=== PATIENT | male | born 1970 | race Caucasian/White ===

== ENCOUNTER 2020-12-26 15:48 | Emergency (ER) | payer OTHER ==
[2020-12-26 15:54] VITALS: BP 151/93; PULSE 67; RESP 18; TEMP 97.9
[2020-12-26] MEDS ORDERED: KETOROLAC 15 MG/ML 1 ML VIAL IVP STA (16:19)
--- NOTE | 2020-12-26 16:30 | ED ---
General Adult HPI - General Chief complaint: Neuro Symptoms/Deficit Stated complaint: left arm pain, Abnormal EKG Time Seen by Provider: 12/26/20 15:55 Source: patient Mode of arrival: ambulatory Limitations: no limitations - History of Present Illness Initial comments: 50-year-old previously healthy male presents emergency Department with reported left dorsal forearm pain. States that the symptoms started on Wednesday. He began having numbness and tingling sensation in his left index finger. Says primary care doctor same-day who is going to order an EMG study. Laboratory studies were conducted. Patient states over the course of the week the pain has gotten more significant. States he has throbbing in the forearm. Has not taking any medications for her symptoms. States he feels weaker in the extremity. His concern is for blood clots. Symptoms do not involve upper extremity. No neck pain. He is right-hand dominant. He denies a chest pain or shortness of breath. Because of the severity symptoms he went into urgent care. They compl eted an EKG, told him that he had an abnormal EKG and recommended he go to the hospital. He denies previous history of cardiac disease. Does not smoke, have a history of hypertension or high blood pressure. He denies exertional fatigue. No other alleviating, precipitating or modifying factors - Related Data Home Medications Medication Instructions Recorded Confirmed Aspirin EC [Ecotrin Low Dose] 81 mg PO DAILY 12/26/20 12/26/20 Ginseng 100 mg PO DAILY 12/26/20 12/26/20 Multivitamins, Thera [Multivitamin 1 tab PO DAILY 12/26/20 12/26/20 (formulary)] Previous Rx's Medication Instructions Recorded Cyclobenzaprine [Flexeril] 10 mg PO TID #24 tab 12/26/20 predniSONE [Deltasone] 20 mg PO BID #10 tab 12/26/20 Allergies Allergy/AdvReac Type Severity Reaction Status Date / Time amoxicillin Allergy Vomiting Verified 12/26/20 16:52 Penicillins Allergy Vomiting Verified 12/26/20 16:52 Review of Systems ROS Statement: Those systems with pertinent positive or pertinent negative responses have been documented in the HPI. ROS Other: All systems not noted in ROS Statement are negative. Past Medical History Past Medical History: No Reported History History of Any Multi-Drug Resistant Organisms: None Reported Past Surgical History: No Surgical Hx Reported Past Psychological History: Bipolar, Depression Smoking Status: Never smoker Past Alcohol Use History: None Reported Past Drug Use History: None Reported General Exam Limitations: no limitations Course Vital Signs 12/26/20 15:51 Temperature 97.9 F Pulse Rate 67 Respiratory 18 Rate Blood Pressure 151/93 O2 Sat by Pulse 99 Oximetry EKG Findings - EKG Comments: EKG Findings:: EKG completed demonstrates sinus bradycardia with a ventricular rate of 57. IA interval 130. QRS 88. QTC of 416. There is inverted T-wave in lead 3. No acute ST segment elevations. Medical Decision Making - Medical Decision Making Upon arrival patient was placed into room 7. A thorough history and physical exam was performed. IV is established laboratory says her conducted. Patient went for a neck x-ray, chest x-ray and had a venous Doppler of his left upper extremity performed. He was given a dose of Toradol without improvement. Patient additionally given a dose of morphine with improvement in his pain. Laboratory studies are reviewed. Troponin negative. CK 175. Venous Doppler is negative for DVT with the upper extremity. Chest x-ray demonstrates no acute radiographic process. Mildly enlarged cardiac silhouette. X-ray of the neck demonstrates cervical spondylosis. Results are discussed with the patient. He does have reproducible pain with palpation which improves with manipulation of the left upper extremity. Patient's symptoms consistent with cervical radiculopathy at this time. He is given a dose of steroids. Patient additionally given another dose of pain medications. I discussed diagnosis, differential treatment options. Patient will be discharged home on 5 days worth of steroids as well as a muscle relaxer. Instructed to take medications as directed and follow-up with his primary care doctor for EMG. Due to the patient's age also recommended full cardiac workup to include stress testing and echo. Return to the emergency room for any new or worsening symptoms. Patient was discharged in stable condition. - Lab Data Result diagrams: 12/26/20 17:11 12/26/20 17:11 Lab Results 12/26/20 12/26/20 12/26/20 Range/Units 17:11 17:11 17:11 WBC 5.7 (3.8-10.6) k/uL RBC 4.41 (4.30-5.90) m/uL Hgb 14.0 (13.0-17.5) gm/dL Hct 40.3 (39.0-53.0) % MCV 91.5 (80.0-100.0) fL MCH 31.7 (25.0-35.0) pg MCHC 34.7 (31.0-37.0) g/dL RDW 12.8 (11.5-15.5) % Plt Count 234 (150-450) k/uL MPV 7.8 Neutrophils % 50 % Lymphocytes % 36 % Monocytes % 7 % Eosinophils % 3 % Basophils % 1 % Neutrophils # 2.9 (1.3-7.7) k/uL Lymphocytes # 2.1 (1.0-4.8) k/uL Monocytes # 0.4 (0-1.0) k/uL Eosinophils # 0.1 (0-0.7) k/uL Basophils # 0.1 (0-0.2) k/uL PT 9.9 (9.0-12.0) sec INR 0.9 (<1.2) APTT 25.4 (22.0-30.0) sec Sodium 138 (137-145) mmol/L Potassium 4.3 (3.5-5.1) mmol/L Chloride 107 (98-107) mmol/L Carbon Dioxide 22 (22-30) mmol/L Anion Gap 9 mmol/L BUN 19 (9-20) mg/dL Creatinine 0.80 (0.66-1.25) mg/dL Est GFR (CKD-EPI)AfAm >90 (>60 ml/min/1.73 sqM) Est GFR (CKD-EPI)NonAf >90 (>60 ml/min/1.73 sqM) Glucose 106 H (74-99) mg/dL Plasma Lactic Acid Brent (0.7-2.0) mmol/L Calcium 9.5 (8.4-10.2) mg/dL Magnesium 2.0 (1.6-2.3) mg/dL Total Bilirubin 0.5 (0.2-1.3) mg/dL AST 33 (17-59) U/L ALT 23 (4-49) U/L Alkaline Phosphatase 64 (38-126) U/L Creatine Kinase 175 H (55-170) U/L Troponin I (0.000-0.034) ng/mL Total Protein 6.9 (6.3-8.2) g/dL Albumin 4.2 (3.5-5.0) g/dL 12/26/20 12/26/20 Range/Units 17:11 17:11 WBC (3.8-10.6) k/uL RBC (4.30-5.90) m/uL Hgb (13.0-17.5) gm/dL Hct (39.0-53.0) % MCV (80.0-100.0) fL MCH (25.0-35.0) pg MCHC (31.0-37.0) g/dL RDW (11.5-15.5) % Plt Count (150-450) k/uL MPV Neutrophils % % Lymphocytes % % Monocytes % % Eosinophils % % Basophils % % Neutrophils # (1.3-7.7) k/uL Lymphocytes # (1.0-4.8) k/uL Monocytes # (0-1.0) k/uL Eosinophils # (0-0.7) k/uL Basophils # (0-0.2) k/uL PT (9.0-12.0) sec INR (<1.2) APTT (22.0-30.0) sec Sodium (137-145) mmol/L Potassium (3.5-5.1) mmol/L Chloride (98-107) mmol/L Carbon Dioxide (22-30) mmol/L Anion Gap mmol/L BUN (9-20) mg/dL Creatinine (0.66-1.25) mg/dL Est GFR (CKD-EPI)AfAm (>60 ml/min/1.73 sqM) Est GFR (CKD-EPI)NonAf (>60 ml/min/1.73 sqM) Glucose (74-99) mg/dL Plasma Lactic Acid Brent 0.8 (0.7-2.0) mmol/L Calcium (8.4-10.2) mg/dL Magnesium (1.6-2.3) mg/dL Total Bilirubin (0.2-1.3) mg/dL AST (17-59) U/L ALT (4-49) U/L Alkaline Phosphatase (38-126) U/L Creatine Kinase (55-170) U/L Troponin I <0.012 (0.000-0.034) ng/mL Total Protein (6.3-8.2) g/dL Albumin (3.5-5.0) g/dL Disposition Clinical Impression: Cervical radiculopathy, Left arm pain Disposition: HOME SELF-CARE Condition: Stable Instructions (If sedation given, give patient instructions): Cervical Radiculopathy (ED) Additional Instructions: Please follow up with your PCP in 2-4 days for your symptoms. I do recommend an EMG. You should also have a full cardiac workup to include an echo and stress test. You may take Tylenol with your muscle relaxer and steroids. Do not take any NSAIDS (aleve, advil, motrin). Return for any new or worsening symptoms . Prescriptions: predniSONE [Deltasone] 20 mg PO BID #10 tab Cyclobenzaprine [Flexeril] 10 mg PO TID #24 tab Is patient prescribed a controlled substance at d/c from ED?: No Referrals: [facility],Clinic [Primary Care Provider] - 1-2 days Time of Disposition: 19:12
[2020-12-26 17:20] LABS: Basophils # (A) 0.1 k/uL (0-0.2); Basophils % (A) 1 %; Eosinophils # (A) 0.1 k/uL (0-0.7); Eosinophils % (A) 3 %; HCT 40.3 % (39.0-53.0); Lymphocytes # (A) 2.1 k/uL (1.0-4.8); Lymphocytes % (A) 36 %; MCH 31.7 pg (25.0-35.0); MCHC 34.7 g/dL (31.0-37.0); MCV 91.5 fL (80.0-100.0); Mean Platelet Volume 7.8; Monocytes # (A) 0.4 k/uL (0-1.0); Monocytes % (A) 7 %; Neutrophils # (A) 2.9 k/uL (1.3-7.7); Neutrophils % (A) 50 %; Platelet Count 234 k/uL (150-450); RBC 4.41 m/uL (4.30-5.90); RDW 12.8 % (11.5-15.5); WBC 5.7 k/uL (3.8-10.6)
[2020-12-26 17:31] LABS: ALT 23 U/L (4-49); AST 33 U/L (17-59); African American GFR (CKD) >90 (>60 ml/min/1.73 sqM); Albumin 4.2 g/dL (3.5-5.0); Alkaline Phosphatase 64 U/L (38-126); Anion Gap 9 mmol/L; Blood Urea Nitrogen 19 mg/dL (9-20); Calcium 9.5 mg/dL (8.4-10.2); Carbon Dioxide 22 mmol/L (22-30); Chloride 107 mmol/L (98-107); Creatine Kinase 175 U/L (55-170); Glucose 106 mg/dL (74-99); Non-African American GFR(CKD) >90 (>60 ml/min/1.73 sqM); Potassium 4.3 mmol/L (3.5-5.1); Sodium 138 mmol/L (137-145); Total Bilirubin 0.5 mg/dL (0.2-1.3); Total Protein 6.9 g/dL (6.3-8.2)
[2020-12-26 17:32] LABS: INR 0.9 (<1.2); Partial Thromboplastin Time 25.4 sec (22.0-30.0); Prothrombin Time 9.9 sec (9.0-12.0)
[2020-12-26] MEDS ORDERED: MORPHINE SULFATE 4 MG/ML SYRINGE IVP STA (17:55)
--- NOTE | 2020-12-26 18:27 | XR ---
EXAMINATION: XR chest 2V DATE AND TIME: 12/26/2020 5:25 PM CLINICAL INDICATION: PHH; abn ekg TECHNIQUE: Departmental protocol COMPARISON: None FINDINGS: The lungs are clear. The pleural spaces are negative. The cardiac silhouette is mildly enlarged. The remainder of the mediastinal silhouette is unremarkabl e. The skeletal structures and soft tissues are negative for acute findings. IMPRESSION: 1. NO ACUTE RADIOGRAPHIC PROCESS. 2. MILDLY ENLARGED CARDIAC SILHOUETTE.
--- NOTE | 2020-12-26 18:30 | XR ---
PROCEDURE: XR cervical spine comp - 5V DATE AND TIME: 12/26/2020 5:25 PM CLINICAL INDICATION: PHH; left arm parethesias TECHNIQUE: Department protocol COMPARISON: None FINDINGS: There is no fracture or malalignment. Moderate and mild multilevel cervical spondylosis changes are noted, with straightening of the cervic al spine. It is noted that the bilateral oblique images are not symmetric a technical limitation of evaluation. The soft tissues are unremarkable. IMPRESSION: Cervical spondylosis.
--- NOTE | 2020-12-26 18:35 | US ---
EXAMINATION TYPE: US venous doppler duplex UE LT DATE OF EXAM: 12/26/2020 COMPARISON: NONE CLINICAL HISTORY: arm pain. Left arm pain and numbness SIDE PERFORMED: Left FINDINGS: Grayscale, color doppler, spectral doppler imaging performed of the deep veins of the left upper extremity. There is normal flow, compressibility and vascular waveforms. IMPRESSION: Negative for DVT, left upper extremity.
[2020-12-26] MEDS ORDERED: methylPREDNISolone SOD SUCCI 125 MG/2 ML VIAL IV STA (19:06)
[2020-12-26] MEDS ORDERED: HYDROmorphone 1 MG/ML 1 ML SYRINGE IVP STA (19:06)
== END 2020-12-26 19:40 | disposition home or self-care (01) ==
LOC: EC 15:48
DX: M79.632 Pain in left forearm (principal); M54.12 Radiculopathy, cervical region; F31.9 Bipolar disorder, unspecified; Z79.82 Long term (current) use of aspirin; Z88.0 Allergy status to penicillin
CPT/HCPCS: 36415; 71046; 72050; 80053; 82550; 83605; 83735; 84484; 85025; 85610; 85730; 93005; 96374; 96375; 99284

== ENCOUNTER 2021-02-05 09:07 | Day surgery (SDC) | payer OTHER ==
[2021-02-03 16:13] VITALS: BMI 30.8
[~2021-02-05 09:07] MED LIST: LACTATED RINGERS 1,000 ML IV SCH; LIDOCAINE 1% (10MG/ML) FOR IV START INTRADERMA PRN
[2021-02-05 09:53] VITALS: TEMP 97.4
[2021-02-05] MEDS ORDERED: PROPOFOL 10 MG/ML 20 ML VIAL IV ONE (10:57)
[2021-02-05] MEDS ORDERED: LIDOCAINE 1% INJ 10MG/ML (20 ML MDV) ONE (10:57)
--- NOTE | 2021-02-05 11:18 | P.PCN ---
Date of Procedure: 02/05/21 Procedure(s) Performed: Brief history: Patient is a [id number] white male scheduled for an elective upper endoscopy as well as colonoscopy as a part of evaluation ofGERD/intermittent dysphagia Procedure performed: Esophagogastroduodenoscopybiopsy Colonoscopy with biopsy Preoperative diagnosis: GERD/intermittent dysphagia Screening for colon cancer Anesthesia: MAC Procedure: After informed consent was obtained from the patient was brought into the endoscopy unit and IV sedation was administered by anesthesia under continuous monitoring. Initially upper endoscopy was done. The Olympus GF 160 video endoscope was inserted inserted into the mouth and esophagus intubated without any difficulty and was gradually advanced into the stomach and duodenum and carefully examined. The bulb and second part of the duodenum appeared normal. The scope was then withdrawn into the stomach adequately insufflated with air and upon careful examination the antrum and body, cardia and fundus appeared normal. The scope was then withdrawn into the esophagus. The GE junction was located at 40 cm to the incisors. there was a distal esophageal Schatzki's ring noted which was widely patent. It appeared regular with no erythema erosions or ulcerations. Small hiatal hernia noted.biopsies were done from the distal esophagus Rest of the esophagus appeared normal. Patient tolerated the procedure well. At this time the patient continued to remain sedation. Initial digital rectal examination was normal. Olympus CF 160 video colonoscope was then inserted into the rectum and gradually advanced to the cecum without any difficulty. Careful examination was performed as the scope was gradually being withdrawn. The prep was excellent. The cecum, ascending colon, transverse colon, descending colon,appeared normal. In the sigmoid: There was a 3 mm polyp that was removed by cold biopsy. Scattered sigmoid diverticulosis seen. Rest of the sigmoid colon and rectum appeared normal. Retroflexion was performed in the rectum and no lesions were noted. Patient tolerated the procedure well. Impression: 1.Upper endoscopy revealed small hiatal hernia and widely patent distal esophageal Schatzki's ring 2.Colonoscopy revealed3 mm;sigmoid polyp status post biopsy and scattered sigmoid diverticulosis Recommendations: Findings of this examination were discussed with the patient as well ashis family. He was advised to follow with the biopsy results. He will continue with Prilosec 20 mg daily and follow antireflux measures. If the biopsy of the colon polyp reveals adenoma, he can have a repeat colonoscopy in5 years
[2021-02-05 11:22] VITALS: RESP 18
[2021-02-05 11:33] VITALS: BP 137/77; PULSE 84
== END 2021-02-05 11:52 | disposition home or self-care (01) ==
LOC: ORWHC2ENDO 09:07
PROVIDERS: ATTEND Internal Medicine Gastroenterology
DX: Z12.11 Encounter for screening for malignant neoplasm of colon (principal); K21.9 Gastro-esophageal reflux disease without esophagitis; K63.5 Polyp of colon; K22.2 Esophageal obstruction; K44.9 Diaphragmatic hernia without obstruction or gangrene; K57.30 Diverticulosis of large intestine without perforation or abscess without bleeding; Z98.890 Other specified postprocedural states
CPT/HCPCS: 45380; 43239; J2001; J2704; 88305

== ENCOUNTER 2021-04-01 12:29 | Emergency (ER) | payer OTHER ==
[2021-04-01] MEDS ORDERED: HYDROmorphone 1 MG/ML 1 ML SYRINGE IM STA (13:45)
[2021-04-01] MEDS ORDERED: ONDANSETRON 4 MG TAB PO STA (13:45)
[2021-04-01] MEDS ORDERED: DIPH,PERTUS(ACELL)TETVAC-LF 0.5 ML VIAL IM ONE (13:54)
[2021-04-01] MEDS ORDERED: LIDOCAINE 1% INJ 10MG/ML (20 ML MDV) SQ ONE (13:54)
[2021-04-01] MEDS ORDERED: BACITRACIN OINT 1 EACH PACKET TOPICAL ONE (13:56)
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
--- NOTE | 2021-04-01 14:15 | XR ---
EXAMINATION TYPE: XR finger LT DATE OF EXAM: 04/01/2021 COMPARISON: None HISTORY: Laceration TECHNIQUE: 3 view left index finger FINDINGS: There is soft tissue injury over the distal finger. A small fracture appears to be at the t uft of the digit at the level of the laceration.. No radiopaque foreign bodies are identified. IMPRESSION: 1. There appears to be a fracture at the lateral tuft of the left index finger.
[2021-04-01] MEDS ORDERED: GELATIN SPONGE,ABSORB (SMALL) 1 EACH SPONGE TOPICAL STA (15:14)
[2021-04-01] MEDS ORDERED: ACET/COD 300 MG/30 MG STARTER PACK 6 TAB BTL PO STA (15:26)
[2021-04-01 15:47] VITALS: BP 186/64; PULSE 68; RESP 16; TEMP 98.8
== END 2021-04-01 15:46 | disposition home or self-care (01) ==
LOC: EC 12:29
DX: S62.601A Fracture of unspecified phalanx of left index finger, initial encounter for closed fracture (principal); M19.90 Unspecified osteoarthritis, unspecified site; F31.9 Bipolar disorder, unspecified; Z87.891 Personal history of nicotine dependence; Z79.82 Long term (current) use of aspirin; Z79.1 Long term (current) use of non-steroidal anti-inflammatories (NSAID); Z79.899 Other long term (current) drug therapy; Z88.0 Allergy status to penicillin; W27.0XXA Contact with workbench tool, initial encounter
CPT/HCPCS: 73140; 90715; 12001; 90471; 96372; 99283; J2001; J1170

== ENCOUNTER 2021-04-02 15:28 | Emergency (ER) | payer OTHER ==
[2021-04-02 17:16] VITALS: BP 163/96; PULSE 83; TEMP 97.7
[2021-04-02] MEDS ORDERED: BACITRACIN OINT 1 EACH PACKET TOPICAL ONE (19:12)
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
[2021-04-02 20:00] VITALS: RESP 16
== END 2021-04-02 19:59 | disposition home or self-care (01) ==
LOC: EC 15:28
DX: S61.211A Laceration without foreign body of left index finger without damage to nail, initial encounter (principal); M19.90 Unspecified osteoarthritis, unspecified site; F31.9 Bipolar disorder, unspecified; Z79.82 Long term (current) use of aspirin; Z88.0 Allergy status to penicillin; Z87.891 Personal history of nicotine dependence; X58.XXXA Exposure to other specified factors, initial encounter
CPT/HCPCS: 99282

== ENCOUNTER 2022-06-17 12:36 | Emergency (ER) | payer OTHER ==
--- NOTE | 2022-06-17 13:48 | CT ---
EXAMINATION TYPE: CT abdomen pelvis wo con DATE OF EXAM: 06/17/2022 COMPARISON: None HISTORY: abdominal pain, ulcer CT DLP: 887.1 mGycm Automated exposure control for dose reduction was used. TECHNIQUE: Helical acquisition of images was performed from the lung bases through the pelvis. FINDINGS: LUNG BASES: There are 2 mm nodule seen in the right lower lobe too small to characterize. LIVER/GB: Faint attenuation within the gallbladder could represent sludge or tiny gallstones. PANCREAS: No significant abnormality is seen. SPLEEN: No significant abnormality is seen. ADRENALS: No significant abnormality is seen. KIDNEYS: Less than 1 cm hypodensity in the lateral margin of the left renal cortex too small to atiya cterize. FREE AIR: No free air is visualized URINARY BLADDER: No significant abnormality is seen. ADENOPATHY: None visualized. OSSEOUS STRUCTURES: No significant abnormality is seen. BOWEL: Bowel gas pattern is nonspecific with no evidence of obstruction. Stomach is nondistended and limited assessment. Diverticulosis of the colon with no CT evidence of diverticulitis. Appendix norm al. OTHER: Bilateral fat containing ventral hernia. IMPRESSION: 1, NO DEFINITE ACUTE PROCESS. 2. DIVERTICULOSIS OF COLON. NO CT EVIDENCE OF DIVERTICULITIS. 3. STOMACH IS LIMITED IN ASSESSMENT DUE TO INCOMPLETE DISTENTION. IF THERE IS CONCERN FOR PEPTIC ULCE R DISEASE CONSIDER DIRECT VISUALIZATION. 4. RECOMMEND FOLLOW-UP ULTRASOUND FOR QUESTIONABLE SLUDGE OR FAINT GALLSTONES. 5. INDETERMINATE LEFT SUBCENTIMETER RENAL LESIONS 6. THERE ARE MULTIPLE LESS THAN 5 MM PULMONARY NODULES WITHIN THE RIGHT LUNG TOO SMALL TO CHARACTERIZ E RECOMMEND 12 MONTH FOLLOW-UP..
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
[2022-06-17] MEDS ORDERED: KETOROLAC 15 MG/ML 1 ML VIAL IVP STA (14:00)
[2022-06-17 14:27] VITALS: BP 133/86; PULSE 61; RESP 16; TEMP 97.8
== END 2022-06-17 14:27 | disposition home or self-care (01) ==
LOC: EC 12:36
DX: K21.9 Gastro-esophageal reflux disease without esophagitis (principal); Z88.0 Allergy status to penicillin; Z88.1 Allergy status to other antibiotic agents; Z79.82 Long term (current) use of aspirin; Z87.891 Personal history of nicotine dependence; Z85.828 Personal history of other malignant neoplasm of skin
CPT/HCPCS: 74176; 99284

== ENCOUNTER 2023-04-01 14:06 | Emergency (ER) | payer OTHER ==
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
--- NOTE | 2023-04-01 15:19 | XR ---
EXAMINATION TYPE: XR chest 2V DATE OF EXAM: 04/01/2023 COMPARISON: 12/26/2020 INDICATION: Chest pain TECHNIQUE: Frontal and lateral views of the chest are obtained. FINDINGS: The heart size is normal. The pulmonary vasculature is normal. The lungs are clear. IMPRESSION: 1. No acute pulmonary process.
[2023-04-01 16:19] LABS: Basophils # (A) 0.1 k/uL (0-0.2); Basophils % (A) 1 %; Eosinophils # (A) 0.1 k/uL (0-0.7); Eosinophils % (A) 2 %; HCT 45.8 % (39.0-53.0); HGB 15.7 gm/dL (13.0-17.5); Lymphocytes # (A) 2.2 k/uL (1.0-4.8); Lymphocytes % (A) 31 %; MCH 30.9 pg (25.0-35.0); MCHC 34.3 g/dL (31.0-37.0); Mean Platelet Volume 7.8; Monocytes # (A) 0.3 k/uL (0-1.0); Monocytes % (A) 5 %; Neutrophils # (A) 4.3 k/uL (1.3-7.7); Neutrophils % (A) 60 %; Platelet Count 252 k/uL (150-450); RBC 5.09 m/uL (4.30-5.90); RDW 12.3 % (11.5-15.5); WBC 7.2 k/uL (3.8-10.6)
[2023-04-01 16:36] LABS: Partial Thromboplastin Time 27.4 sec (22.0-30.0); Prothrombin Time 10.9 sec (10.0-12.5)
[2023-04-01 16:39] LABS: ALT 24 U/L (4-49); AST 30 U/L (17-59); African American GFR (CKD) >90 (>60 ml/min/1.73 sqM); Albumin 4.7 g/dL (3.5-5.0); Alkaline Phosphatase 70 U/L (38-126); Anion Gap 13 mmol/L; Blood Urea Nitrogen 14 mg/dL (9-20); Calcium 9.5 mg/dL (8.4-10.2); Carbon Dioxide 27 mmol/L (22-30); Chloride 100 mmol/L (98-107); Glucose 96 mg/dL (74-99); Non-African American GFR(CKD) >90 (>60 ml/min/1.73 sqM); Potassium 4.4 mmol/L (3.5-5.1); Sodium 140 mmol/L (137-145); Total Bilirubin 0.9 mg/dL (0.2-1.3); Total Protein 7.6 g/dL (6.3-8.2)
[2023-04-01 20:41] VITALS: BP 156/108; PULSE 67; RESP 18; TEMP 98
== END 2023-04-01 20:31 | disposition home or self-care (01) ==
LOC: EC 14:06
DX: I10 Essential (primary) hypertension (principal); R00.1 Bradycardia, unspecified; Z87.891 Personal history of nicotine dependence; Z86.59 Personal history of other mental and behavioral disorders; Z88.0 Allergy status to penicillin
CPT/HCPCS: 36415; 71046; 80053; 84484; 85025; 85610; 85730; 93005; 99284

== ENCOUNTER 2023-06-24 09:24 | Day surgery (SDC) | payer OTHER ==
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
[2023-06-24] MEDS: LACTATED RINGERS 1,000 ML IV SCH (09:56)
[2023-06-24 09:57] VITALS: RESP 16; TEMP 97.8
[2023-06-24] MEDS ORDERED: PROPOFOL 10 MG/ML 20 ML VIAL IV ONE (10:03)
[2023-06-24] MEDS ORDERED: LIDOCAINE 1% INJ 10MG/ML (20 ML MDV) ONE (10:03)
--- NOTE | 2023-06-24 10:27 | P.PCN ---
Date of Procedure: 06/24/23 Description of Procedure: PREOPERATIVE DIAGNOSIS: Gastroesophageal reflux disease, uncontrolled Diaphragmatic hiatal hernia POSTOPERATIVE DIAGNOSIS: Gastroesophageal reflux disease. Diaphragmatic hiatal hernia Gastritis OPERATION: Esophagogastroduodenoscopy with biopsies along antrum and duodenum and esophagus SURGEON: Leela Cardona MD ANESTHESIA: MAC. INDICATIONS: The patient is a 53-year-old male who presents with reflux disease. Benefits and risks of the procedure were described. Informed consent was obtained. DESCRIPTION: The patient was brought into the endoscopy suite and laid in the left lateral decubitus position. An Olympus gastroscope was passed along the posterior oropharynx down to the distal esophagus where the squamocolumnar junction was encountered at 38 cm from the incisors. The stomach was entered and no bile reflux was found. Additional findings are listed below. Biopsies with cold forceps were obtained of the antrum. The first through third portion of the duodenum was examined. Retroflexion of the scope confirmed Hill grade 1 lower esophageal valve. The squamocolumnar junction demonstrated LA grade B erosive esophagitis. The stomach was desufflated. The patient tolerated the procedure well. FINDINGS: Squamocolumnar junction 38 cm from the incisors. Diaphragmatic hiatus at 40 cm. Diaphragmatic hiatal hernia, 2 cm, sliding-type Hill grade 1 lower esophageal valve. LA grade B erosive esophagitis. Biopsies obtained Biopsies obtained of the duodenum. Chronic gastritis with biopsies obtained. RECOMMENDATIONS: May resume antiacid therapy Recommend additional workup for gallbladder disease Plan - Discharge Summary Discharge Rx Participant: No New Discharge Prescriptions: Continue Lansoprazole 15 mg PO BID Multivitamins, Thera [Multivitamin (formulary)] 1 tab PO DAILY Aspirin EC [Ecotrin Low Dose] 81 mg PO DAILY Ginseng 100 mg PO DAILY lisinopriL 40 mg PO QAM Discharge Medication List Aspirin EC [Ecotrin Low Dose] 81 mg PO DAILY 12/26/20 [History] Ginseng 100 mg PO DAILY 12/26/20 [History] Multivitamins, Thera [Multivitamin (formulary)] 1 tab PO DAILY 12/26/20 [History] Lansoprazole 15 mg PO BID 06/21/23 [History] lisinopriL 40 mg PO QAM 06/21/23 [History] Follow up Appointment(s)/Referral(s): Leela Cardnoa MD [STAFF PHYSICIAN] - 07/20/23 4:30 pm Patient Instructions/Handouts: Diet for Stomach Ulcers and Gastritis (GEN), GERD (Gastroesophageal Reflux Disease) (GEN) Discharge Disposition: HOME SELF-CARE
[2023-06-24 11:11] VITALS: BP 124/74; PULSE 70
== END 2023-06-24 11:39 | disposition home or self-care (01) ==
LOC: ORWHC2ENDO 09:24
PROVIDERS: ATTEND Surgery Plastic and Reconstructive Surgery
DX: K21.00 Gastro-esophageal reflux disease with esophagitis, without bleeding (principal); K29.50 Unspecified chronic gastritis without bleeding; K44.9 Diaphragmatic hernia without obstruction or gangrene; M19.90 Unspecified osteoarthritis, unspecified site; Z85.828 Personal history of other malignant neoplasm of skin; Z98.890 Other specified postprocedural states; Z87.891 Personal history of nicotine dependence; Z79.82 Long term (current) use of aspirin; Z79.899 Other long term (current) drug therapy; Z88.0 Allergy status to penicillin
CPT/HCPCS: 88305; 43239; J2001; J2704

== ENCOUNTER → 2023-06-30 | Outpatient (CLI) | payer OTHER ==
--- NOTE | 2023-06-30 21:30 | US ---
EXAMINATION TYPE: US gallbladder DATE OF EXAM: 06/30/2023 COMPARISON: NONE CLINICAL INDICATION: Male, 53 years old with history of R10.11 RUQ Pain; RUQ pain x few years; Hx HTN , and surgery for fat removal TECHNIQUE: Multiple sonographic images of the right upper quadrant are obtained. FINDINGS: EXAM MEASUREMENTS: Liver Length: 11.0 cm Gallbladder Wall: 0.2 cm CBD: 0.3 cm Right Kidney: 11.0 x 6.3 x 5.5 cm PAVING SUPERVISOR NOTES: Pancreas: Tail obscured by overlying bowel gas Liver: Increased attenuation Gallbladder: Polyp noted Evidence for sonographic Montes's sign: Yes CBD: wnl Right Kidney: wnl IMPRESSION: 1. Suspected gallbladder polyp. Adherent stone could be considered within the differential.
== END | disposition home or self-care (01) ==
LOC: RADUSWWP 09:44
PROVIDERS: ATTEND Surgery Plastic and Reconstructive Surgery
DX: R10.11 Right upper quadrant pain (principal); I10 Essential (primary) hypertension; Z98.890 Other specified postprocedural states
CPT/HCPCS: 76705

== ENCOUNTER → 2023-06-30 | Outpatient (CLI) | payer OTHER ==
--- NOTE | 2023-06-30 11:56 | FL ---
EXAMINATION TYPE: FL barium swallow DATE OF EXAM: 06/30/2023 COMPARISON: None HISTORY: History of ulcers epigastric pain TECHNIQUE: A double air contrast esophagram study is performed. FINDINGS: Esophagus status to normal caliber and has normal contour of the gastroesophageal junction. Gastroeso phageal junction opens to normal caliber. No intraluminal or extramural defects are evident. The hori zontal drinking position nurse complete stripping esophageal bolus. Minimal presbyesophagus with tert iary contractions may be visualized. Incidental note is made of a central barium collection within the gastric folds identified near the e nd of the study. Gastric ulcer should be considered. The exam is performed as an esophagram and this has limited evaluation. IMPRESSION: 1. Minimal presbyesophagus with tertiary contractions of the distal esophagus. 2. Esophagus otherwise appears unremarkable. 3. Small gastric ulcer within the lesser curvature may be present near the end of the exam.
== END | disposition home or self-care (01) ==
LOC: RADUSWWP 09:46
PROVIDERS: ATTEND Surgery Plastic and Reconstructive Surgery
DX: K22.89 Other specified disease of esophagus (principal); K44.9 Diaphragmatic hernia without obstruction or gangrene; K25.9 Gastric ulcer, unspecified as acute or chronic, without hemorrhage or perforation
CPT/HCPCS: 74220

== ENCOUNTER 2023-09-02 12:44 | Day surgery (SDC) | payer OTHER ==
[2023-08-31 11:32] VITALS: BMI 33.7
[~2023-09-02 12:44] MED LIST changes: +HYDROmorphone 0.5 MG/0.5 ML SYRINGE IVP PRN; -LACTATED RINGERS 1,000 ML IV SCH; +METOCLOPRAMIDE 5 MG/ML 2 ML VIAL IVP PRN; +MIDAZOLAM 2 MG/2 ML VIAL IV PRN; +fentaNYL (PF) 50 MCG/ML 2 ML AMP IV PRN
[2023-09-02] MEDS ORDERED: INDOCYANINE GREEN 25 MG VIAL IV STA (13:17)
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
[2023-09-02] MEDS: IV FLUID CONTINUATION 1,000 ML IV ONE (13:30)
[2023-09-02 13:47] LABS: Basophils # (A) 0.1 k/uL (0-0.2); Basophils % (A) 1 %; Eosinophils # (A) 0.3 k/uL (0-0.7); Eosinophils % (A) 4 %; HCT 51.3 % (39.0-53.0); HGB 16.8 gm/dL (13.0-17.5); Lymphocytes # (A) 2.1 k/uL (1.0-4.8); Lymphocytes % (A) 32 %; MCH 29.7 pg (25.0-35.0); MCHC 32.7 g/dL (31.0-37.0); MCV 90.9 fL (80.0-100.0); Mean Platelet Volume 8.2; Monocytes # (A) 0.4 k/uL (0-1.0); Monocytes % (A) 6 %; Neutrophils # (A) 3.7 k/uL (1.3-7.7); Neutrophils % (A) 56 %; Platelet Count 266 k/uL (150-450); RBC 5.65 m/uL (4.30-5.90); RDW 12.3 % (11.5-15.5); WBC 6.6 k/uL (3.8-10.6)
[2023-09-02] MEDS: ONDANSETRON 4 MG/2 ML VIAL IVP PRN (13:49)
[2023-09-02] MEDS: HEPARIN SODIUM,PORCINE 5,000 UNIT/ML 1 ML VIAL SQ PRN (13:50)
[2023-09-02] MEDS: LACTATED RINGERS 1,000 ML IV SCH (13:51)
[2023-09-02] MEDS: ACETAMINOPHEN TAB 500 MG TAB PO PRN (13:52)
[2023-09-02 13:58] LABS: ALT 22 U/L (4-49); African American GFR (CKD) >90 (>60 ml/min/1.73 sqM); Albumin 4.6 g/dL (3.5-5.0); Anion Gap 6 mmol/L; Blood Urea Nitrogen 18 mg/dL (9-20); Calcium 9.2 mg/dL (8.4-10.2); Carbon Dioxide 22 mmol/L (22-30); Chloride 108 mmol/L (98-107); Glucose 95 mg/dL (74-99); Non-African American GFR(CKD) >90 (>60 ml/min/1.73 sqM); Sodium 136 mmol/L (137-145); Total Bilirubin 1.2 mg/dL (0.2-1.3); Total Protein 7.2 g/dL (6.3-8.2)
[2023-09-02 13:59] LABS: Potassium 4.7 mmol/L (3.5-5.1)
[2023-09-02 14:00] LABS: AST 30 U/L (17-59); Alkaline Phosphatase 58 U/L (38-126)
[2023-09-02] MEDS ORDERED: MIDAZOLAM 2 MG/2 ML VIAL ONE (14:31)
[2023-09-02] MEDS ORDERED: fentaNYL (PF) 50 MCG/ML 2 ML AMP ONE (14:31)
[2023-09-02] MEDS ORDERED: HYDROmorphone (PF) 1 MG/ML ONE (14:31)
[2023-09-02] MEDS ORDERED: NEOSTIGMINE 1 MG/ML 10 ML VIAL ONE (14:31)
[2023-09-02] MEDS ORDERED: SUCCINYLCHOLINE CHLORIDE 200 MG/10 ML VIAL IV ONE (14:31)
[2023-09-02] MEDS ORDERED: GLYCOPYRROLATE 0.2 MG/ML 2 ML VIAL ONE (14:31)
[2023-09-02] MEDS ORDERED: PHENYLEPHRINE-0.9% NACL SYG 1,000 MCG/10 ML SYRINGE ONE (14:31)
[2023-09-02] MEDS ORDERED: ROCURONIUM 10 MG/ML (5 ML VIAL) IV ONE (14:31)
[2023-09-02] MEDS ORDERED: LIDOCAINE 1% INJ 10MG/ML (20 ML MDV) ONE (14:31)
[2023-09-02] MEDS ORDERED: KETOROLAC 30 MG/ML 1 ML VIAL ONE (14:31)
[2023-09-02] MEDS ORDERED: PROPOFOL 10 MG/ML 20 ML VIAL IV ONE (14:31)
[2023-09-02] MEDS: LIDOCAINE 1%-EPI 1:100,000 20 ML VIAL SQ ONE (14:56)
[2023-09-02 15:55] VITALS: TEMP 96.8
[2023-09-02] MEDS ORDERED: KETOROLAC 15 MG/ML 1 ML VIAL IVP PRN (16:22)
[2023-09-02 16:29] VITALS: RESP 18
[2023-09-02] MEDS: HYDROcodone/APAP 7.5-325MG 1 EACH TAB PO PRN (16:56)
[2023-09-02 17:10] VITALS: BP 123/83; PULSE 64
--- NOTE | 2023-09-07 09:49 | P.OP ---
Date of Procedure: 09/02/23 Description of Procedure: SURGEON: LEELA CARDONA MD PREOPERATIVE DIAGNOSES: 1. Symptomatic gallstones 2. Right upper quadrant abdominal pain 3. Hypertensive heart disease 4. Obesity due to excess calories, BMI 32.6 5. Gastroesophageal reflux disease 6. Bipolar disorder 7. Depressive disorder POSTOPERATIVE DIAGNOSES: 1. Symptomatic gallstones 2. Right upper quadrant abdominal pain 3. Hypertensive heart disease 4. Obesity due to excess calories, BMI 32.6 5. Gastroesophageal reflux disease 6. Bipolar disorder 7. Depressive disorder OPERATION: Robotic-assisted da Edmundo Xi laparoscopic cholecystectomy, multiport with FIREFLY ESTIMATED BLOOD LOSS: 5 mL. SPECIMENS REMOVED: Gallbladder. COMPLICATIONS: None. OPERATIVE FINDINGS: 1. Mild hepatomegaly 2. Closure left upper quadrant incision with 0 Vicryl and Wes Kendrick INDICATIONS: The patient is a 53-year-old male who presents with symptomatic gallstones. Robotic assisted laparoscopic approach was described. Benefits and risks of the procedure including but not limited to bleeding, infection, injury to the biliary tree was described. Informed consent was obtained. DESCRIPTION OF PROCEDURE: Patient was brought to the operating room, placed in supine position. After general induction, the abdomen had been prepped and draped in standard sterile fashion. The robotic da Edmundo XI system was primed. After a timeout protocol was performed, the patient had been prepped and draped in standard sterile fashion. The patient was injected with indocyanine green. A 5 mm 0 degrees laparoscopic trocar entry was performed along the left upper quadrant. The abdomen insufflated to 15 mmHg pressure which was tolerated well. Diagnostic laparoscopy demonstrated no injury to bowel viscera or mesentery. The liver surface was remarkable with mild fatty liver disease. Next, two 8 mm robotic ports were placed along the right upper abdomen. The camera 8-mm port was maintained along the epigastrium. Another 8 mm port was placed along the left upper abdominal wall after exchanging the 5 mm port. Please note that the ports were placed at least 10 to 15 cm away from the target anatomy of the gallbladder. The robot was docked along the left lateral abdomen. The patient was repositioned in reverse Trendelenburg position. Using a grasper for arm 3, a grasper for arm 4, including hook cautery for arm 1, the robotic system was docked and primed as described. Instruments were interchanged by the dairy and food laboratory assistant including hook cautery, Bovie cautery and clip appliers. I had sat at the console. Next attention was brought to the infundibulum and cystic structures. Dome down technique was performed from the gallbladder fundus towards the infundibulum using hook artery. The infundibulum and cystic duct were dissected free from surrounding tissues. The cystic duct was isolated. FIREFLY was used to identify the cystic artery and cystic structures. A critical view of safety was obtained. Large PLASTIC clips were used throughout the entire case. Using a clip loop sewer, 3 clips were placed at the junction of the infundibulum and cystic duct. The cystic duct was divided between clips. Next, the cystic artery was similarly clipped and cauterized. Electro-Bovie cautery was used to remove the gallbladder from the hepatic fossa. Hemostasis was checked and found to be adequate. The robot was undocked. I re-scrubbed into the case. Using a 10 mm Endo Catch bag via the left upper quadrant incision, the specimen was removed from the abdominal cavity and the fascia was closed using 0 Vicryl and Wes Kendrick.. All pneumoperitoneum instruments were evacuated from the abdominal cavity. The incisions were reapproximated using 4-0 Monocryl in an interrupted subcuticular fashion. Please note along the trocar sites, local anesthetic was placed as a field block prior to insertion of all instruments. Liquid glue was applied to the skin. At the end of the procedure needle, sponge, and instrument count had been verified correct by the surgical forceps fabricator. The patient was transferred to postanesthesia care unit in stable condition. Intraoperative films were shared with the patient's family. A 10 mm Endo Catch bag was used to remove the gallbladder in total via the left upper quadrant incision after widening the incision. The specimen was removed from the abdominal cavity. Wes Kendrick and 0 Vicryl was used to close the fascial defect of the left upper quadrant. All pneumoperitoneum instruments were evacuated from the abdominal cavity. The incisions were cleansed using dilute hydrogen peroxide. The incisions were reapproximated using 4-0 Monocryl in an interrupted subcuticular fashion. Please note along the trocar sites, local anesthetic was placed as a field block prior to insertion of all instruments. Liquid glue was applied to the skin. At the end of the procedure needle, sponge, and instrument count had been verified correct by the surgical forceps fabricator. The patient was transferred to postanesthesia care unit in stable condition. Intraoperative films were shared with the patient's family who were pleased with the level of care. Plan - Discharge Summary Discharge Rx Participant: No New Discharge Prescriptions: New Simethicone [Gas-X] 125 mg PO AC-TID PRN #20 capsule PRN Reason: Pain Ibuprofen [Motrin] 600 mg PO Q8HR PRN #30 tab PRN Reason: Pain Acetaminophen Tab [Tylenol Tab] 1,000 mg PO Q6HR PRN #30 tablet PRN Reason: Pain Continue Lansoprazole 15 mg PO DAILY Multivitamins, Thera [Multivitamin (formulary)] 1 tab PO DAILY Aspirin EC [Ecotrin Low Dose] 81 mg PO DAILY lisinopriL 40 mg PO QAM Discharge Medication List Aspirin EC [Ecotrin Low Dose] 81 mg PO DAILY 12/26/20 [History] Multivitamins, Thera [Multivitamin (formulary)] 1 tab PO DAILY 12/26/20 [History] Lansoprazole 15 mg PO DAILY 06/21/23 [History] lisinopriL 40 mg PO QAM 06/21/23 [History] Acetaminophen Tab [Tylenol Tab] 1,000 mg PO Q6HR PRN #30 tablet 09/02/23 [Rx] Ibuprofen [Motrin] 600 mg PO Q8HR PRN #30 tab 09/02/23 [Rx] Simethicone [Gas-X] 125 mg PO AC-TID PRN #20 capsule 09/02/23 [Rx] Follow up Appointment(s)/Referral(s): Leela Cardona MD [STAFF PHYSICIAN] - 09/07/23 6:00 pm (TELEHEALTH) Patient Instructions/Handouts: *Surgery [facility] - (Anesthesia) Discharge Instructions Outpatient Surgery, Low Fat Diet (DC), Laparoscopic Cholecystectomy (DC) Activity/Diet/Wound Care/Special Instructions: TELEHEALTH - DR WILL CALL YOU BETWEEN 6 pm to 8 pm NO LONG DRIVES OR AIRPLANE RIDES OVER 30 MINUTES FOR THE NEXT 2 WEEKS DUE TO HIGH RISK OF PULMONARY EMBOLISM/DVTs Recommend low-fat diet for the next 2 days. No lifting over 10 pounds in 2 weeks until September 15July shower. No bath tub soaks, hot tub soaks, swimming for two weeks until September 15 Diet as tolerated. Use Tylenol, simethicone and ibuprofen or Aleve scheduled for the next 24-48 hours for best pain relief. Use ice along incisions for today to prevent swelling. Discharge Disposition: HOME SELF-CARE
== END 2023-09-02 17:38 | disposition home or self-care (01) ==
LOC: OR 12:44
PROVIDERS: ATTEND Surgery Plastic and Reconstructive Surgery
DX: K81.1 Chronic cholecystitis (principal); K21.9 Gastro-esophageal reflux disease without esophagitis; F31.9 Bipolar disorder, unspecified; M19.90 Unspecified osteoarthritis, unspecified site; E66.09 Other obesity due to excess calories; I11.9 Hypertensive heart disease without heart failure; Z85.828 Personal history of other malignant neoplasm of skin; Z87.891 Personal history of nicotine dependence; Z88.0 Allergy status to penicillin; Z68.32 Body mass index [BMI] 32.0-32.9, adult; Z79.82 Long term (current) use of aspirin; Z79.899 Other long term (current) drug therapy
CPT/HCPCS: 88304; 80053; 85025; 47562; J2250; J0330; J1644; J2710; J0690; J2405; J2001; J3010; J1885; J1170; J2704; J2371

== ENCOUNTER 2023-09-05 17:09 | Emergency (ER) | payer OTHER ==
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
[2023-09-05] MEDS: SODIUM CHLORIDE 0.9% 1,000 ML IV STA (18:05)
[2023-09-05 18:13] LABS: Basophils # (A) 0.1 k/uL (0-0.2); Basophils % (A) 1 %; Eosinophils # (A) 0.3 k/uL (0-0.7); Eosinophils % (A) 5 %; HCT 45.5 % (39.0-53.0); Lymphocytes # (A) 1.6 k/uL (1.0-4.8); Lymphocytes % (A) 28 %; MCH 30.2 pg (25.0-35.0); MCV 91.5 fL (80.0-100.0); Mean Platelet Volume 8.6; Monocytes # (A) 0.4 k/uL (0-1.0); Monocytes % (A) 6 %; Neutrophils # (A) 3.3 k/uL (1.3-7.7); Neutrophils % (A) 58 %; Platelet Count 205 k/uL (150-450); RBC 4.97 m/uL (4.30-5.90); RDW 12.4 % (11.5-15.5); WBC 5.8 k/uL (3.8-10.6)
[2023-09-05 18:24] LABS: INR 0.8 (<1.2); Partial Thromboplastin Time 23.2 sec (22.0-30.0); Prothrombin Time 9.6 sec (10.0-12.5)
[2023-09-05 18:38] LABS: ALT 327 U/L (4-49); AST 182 U/L (17-59); African American GFR (CKD) >90 (>60 ml/min/1.73 sqM); Albumin 3.9 g/dL (3.5-5.0); Alkaline Phosphatase 119 U/L (38-126); Amylase 49 U/L (30-110); Anion Gap 4 mmol/L; Blood Urea Nitrogen 17 mg/dL (9-20); Calcium 8.8 mg/dL (8.4-10.2); Carbon Dioxide 25 mmol/L (22-30); Chloride 108 mmol/L (98-107); Glucose 116 mg/dL (74-99); Lipase 53 U/L (23-300); Non-African American GFR(CKD) >90 (>60 ml/min/1.73 sqM); Potassium 4.2 mmol/L (3.5-5.1); Sodium 137 mmol/L (137-145); Total Bilirubin 0.7 mg/dL (0.2-1.3); Total Protein 6.3 g/dL (6.3-8.2)
[2023-09-05] MEDS: MORPHINE SULFATE 4 MG/ML SYRINGE IVP STA ×2 (20:24→22:30)
[2023-09-05 20:30] VITALS: TEMP 98
[2023-09-05 20:54] LABS: Appearance,Urine Clear (Clear); Bilirubin,Urine Negative (Negative); Blood,Urine Negative (Negative); Color,Urine Colorless; Glucose,Urine (UA) Negative (Negative); Ketones,Urine Negative (Negative); Leukocyte Esterase,Urine Negative (Negative); Nitrite,Urine Negative (Negative); PH, Urine 7.5 (5.0-8.0); Protein,Urine Negative (Negative); Urobilinogen,Urine <2.0 mg/dL (<2.0)
[2023-09-05 21:15] LABS: Specific Gravity,Urine >1.050 (1.001-1.035)
--- NOTE | 2023-09-05 22:29 | CT ---
EXAMINATION TYPE: CT abdomen pelvis w con CT DLP: 1538.5 mGycm, Automated exposure control for dose reduction was used. DATE OF EXAM: 09/05/2023 6:30 PM COMPARISON: None. CLINICAL INDICATION:Male, 53 years old with history of abdominal pain. post op cholecystectomy on 09/01 ; Abdominal pain. post op cholecystectomy on 09/01. TECHNIQUE: Axial CT of the abdomen and pelvis. Sagittal and coronal reformats were created on a [employer] workstation. Contrast used:100 ml mL of Isovue 300 with IV Contrast, (none if empty) Oral contrast used: without Oral Contrast (none if empty) FINDINGS: Lung bases are clear. The heart is mildly enlarged. No pericardial effusion. The liver is unremarkable. Status post cholecystectomy. No significant inflammatory changes or fluid seen in the gallbladder fos sa. Biliary tree does not appear dilated. Pancreas, spleen, adrenals, kidneys show no clearly acute anomalies. There is mild bilateral perineph estela stranding of uncertain acuity. No visible calculi or hydronephrosis. Urinary bladder appears nondistended without clear evidence of an acute anteriorly. Prostate is sligh tly prominent measuring 45 mm transverse. Stomach and small bowel are nondistended there is no evidence of obstruction. Appendix is normal. Mil d to moderate stool throughout the colon without focal abnormality seen. There are several descending and sigmoid region diverticula without clear evidence of diverticulitis. Appearance of the anterior abdominal wall and intraperitoneal are not unexpected given the recent pos tcholecystectomy status. No focal active inflammatory process or abscess is seen. No free fluid or fr ee air. No lymphadenopathy seen. Aorta and IVC appear within normal limits. Small bilateral fat-containing inguinal hernias and tiny umbilical region hernia. Mild degenerative change of the visualized spine. No evidence of lytic/blastic bony lesion. IMPRESSION: * Status post cholecystectomy, without unexpected abnormality in the right upper quadrant. * No evidence of bowel obstruction, free fluid or free air. Normal appendix.
[2023-09-05 23:18] VITALS: BP 150/99; PULSE 71; RESP 19
[2023-09-05] MEDS: ACET/COD 300 MG/30 MG STARTER PACK 6 TAB BTL PO STA (23:34)
== END 2023-09-05 23:28 | disposition home or self-care (01) ==
LOC: EC 17:09
DX: G89.18 Other acute postprocedural pain (principal); R10.9 Unspecified abdominal pain; Z88.0 Allergy status to penicillin; Z87.891 Personal history of nicotine dependence
CPT/HCPCS: 36415; 80053; 82150; 83605; 83690; 85025; 85610; 85730; 81003; 74177; 99284; 96374; 96376; 96361 ×4; J2270; Q9967

== ENCOUNTER → 2024-08-01 | Outpatient (CLI) | payer OTHER ==
--- NOTE | 2024-08-01 09:02 | US ---
EXAMINATION TYPE: US liver DATE OF EXAM: 08/01/2024 COMPARISON: CT abdomen and pelvis 09/15/2023, gallbladder ultrasound 06/30/2023 CLINICAL INDICATION: Male, 54 years old with history of R94.5 ABNORMAL LFT TEST; Abnormal LFT's, GB r emoved TECHNIQUE: Grayscale and color Doppler imaging of the right upper quadrant was performed. FINDINGS: EXAM MEASUREMENTS: Liver Length: 17.2 cm CBD: 0.3 cm Right Kidney: 10.2 x 5.0 x 5.6 cm FORTUNE TELLER NOTES: Pancreas: wnl, tail obscured by overlying bowel gas Liver: Heterogeneous, difficult to penetrate Gallbladder: Surgically absent CBD: wnl Right Kidney: No evidence of hydro The visualized portions of the pancreas unremarkable. Nonspecific morphology of liver with heterogeno us echotexture. Demonstrates diffuse increased echogenicity and difficult to penetrate. No focal lesi on identified. The gallbladder is surgically absent. Common bile duct is within normal limits. Right kidney demonstrates no hydronephrosis, solid mass or shadowing calculus. IMPRESSION: 1. No ultrasound evidence for acute process. 2. Hepatic steatosis. 3. Post cholecystectomy changes. [facility], , 08/01/2024 8:59 AM
== END | disposition home or self-care (01) ==
LOC: RADUSWWP 08:11
PROVIDERS: ATTEND Family Medicine
DX: K76.0 Fatty (change of) liver, not elsewhere classified (principal); R94.5 Abnormal results of liver function studies; Z90.49 Acquired absence of other specified parts of digestive tract
CPT/HCPCS: 76705